=== PATIENT | male | born 1960 | race Caucasian/White ===

== ENCOUNTER 2024-10-03 14:28 | Emergency (ER) | payer OTHER ==
[2024-10-03 14:42] VITALS: BP 147/66; PULSE 91; RESP 19; TEMP 97.9; BMI 25.0
[2024-10-03 15:33] LABS: VENOUS BASE EXCESS -0.3 mmol/L (-2-2); VENOUS O2 SATURATION 46.9 % (70-80); VENOUS PCO2 48.3 mmHg (38-52); VENOUS PH 7.35 (7.310-7.410)
[2024-10-03 15:38] LABS: BASO % 0.6 % (0-2.0); EOS % 1.9 % (0-4.5); HEMATOCRIT 46.6 % (35.4-49); HEMOGLOBIN 15.8 GM/dL (11.7-16.9); LYMPH % 29.5 % (8-40); MCH 28.1 pg (25.7-33.7); MCHC 33.9 g/dl (32.0-35.9); MEAN CELL VOLUME 82.9 fl (80-96); MEAN PLT VOLUME 8.5 fl (7.5-11.1); MONO % 6.4 % (3.8-10.2); NEUT % 61.6 % (42.8-82.8); PLATELET COUNT 205 10^3/uL (134-434); RBC 5.62 M/mm3 (4.00-5.60); RDW 14.5 % (11.9-15.9); WHITE BLOOD COUNT 8.2 K/mm3 (4.0-10.0)
[2024-10-03 15:57] LABS: POTASSIUM 4.3 mmol/L (3.5-5.1)
[2024-10-03 15:59] LABS: CALCIUM 9.8 mg/dL (8.5-10.1)
[2024-10-03 16:00] LABS: ALBUMIN 3.9 g/dl (3.4-5.0); BLOOD UREA NITROGEN 20.4 mg/dL (7-18)
[2024-10-03 16:03] LABS: BILIRUBIN,TOTAL 0.7 mg/dL (0.2-1); TOT PROT 7.9 g/dl (6.4-8.2)
[2024-10-03 16:50] LABS: HIV INTERPRETATION NEGATIVE (NEGATIVE)
== END 2024-10-03 16:55 | disposition home or self-care (01) ==
LOC: JER 14:28
DX: E11.65 Type 2 diabetes mellitus with hyperglycemia (principal); Z79.84 Long term (current) use of oral hypoglycemic drugs
CPT/HCPCS: 36415; 80053; 82010; 82803; 82962; 85025; 86803; 87389; 93005; 93010; 99284-25